=== PATIENT | male | born 1990 | race Two or more races ===

== ENCOUNTER 2024-10-09 15:57 | Emergency (ER) | payer MEDICAID ==
[~2024-10-09] VITALS: Ht 175.3 cm; Wt 77.1 kg
[2024-10-09 16:53] VITALS: BP 114/83; TEMP 98.2; O2SAT 99
[2024-10-09] MEDS ORDERED: HYDROCODONE/APAP 5/325MG TABLET ONE (17:10)
[2024-10-09] MEDS ORDERED: KETOROLAC TROMETHAMINE INJ 30 MG/ML VIAL ONE (17:10)
[2024-10-09] MEDS: KETOROLAC TROMETHAMINE INJ 30 MG/ML VIAL IM ONE (17:33)
[2024-10-09] MEDS: HYDROCODONE/APAP 5/325MG TABLET PO ONE (17:34)
== END 2024-10-09 18:45 | disposition left against medical advice (07) ==
LOC: ER 16:45
DX: M54.59 Other low back pain (principal); R07.81 Pleurodynia
CPT/HCPCS: 99285; 71250; 96372; 72131; J1885